=== PATIENT | male | born 1940 | race African-American/Black ===

== ENCOUNTER 2016-12-11 20:16 | Emergency (ER) | payer MEDICARE, OTHER ==
[~2016-12-11] VITALS: Ht 185.4 cm; Wt 79.4 kg
[~2016-12-11 20:16] MED LIST: ATOR10TA84 PO; FINA1 PO; GABA-529 PO; GLIP5 PO; LABE200T PO; LISI-660 PO; METF500T4 PO; OMEP20 PO; TRAM50TA4 PO
[2016-12-11 20:39] LABS: BASOPHILS # (AUTO) 0.05 K/uL (0.00-0.20); BASOPHILS % (AUTO) 0.4 % (0.0-2.0); EOSINOPHILS # (AUTO) 0.41 K/uL (0.00-0.70); EOSINOPHILS % (AUTO) 2.82 % (1.0-6.0); HEMATOCRIT 36.3 % (41-53); HEMOGLOBIN 11.9 g/dL (13.5-17.5); LYMPHOCYTES # (AUTO) 8.7 K/uL (1.0-4.8); MEAN CORPUSCULAR HEMOGLOBIN 29.3 pg (26.0-34.0); MEAN CORPUSCULAR HGB CONC 32.7 G/dL (31.0-37.0); MEAN CORPUSCULAR VOLUME 90 fL (80-100); MONOCYTES # (AUTO) 0.5 K/uL (0.1-1.0); MONOCYTES % (AUTO) 3.4 % (2.0-9.0); NEUTROPHILS # (AUTO) 4.8 K/uL (1.8-7.7); NEUTROPHILS % (AUTO) 33.5 % (40.0-70.0); PLATELET COUNT (AUTO) 176 K/uL (150-450); RED BLOOD CELL COUNT(AUTO) 4.05 MIL/uL (4.50-5.90); RED CELL DISTRIBUTION WIDTH 15.2 % (11.5-14.5); WHITE BLOOD COUNT (AUTO) 14.4 K/uL (4.5-11.0)
[2016-12-11 20:51] LABS: ANION GAP 9 mmol/L (8-16); CALCIUM, TOTAL 8.8 mg/dL (8.8-10.5); CARBON DIOXIDE 28 mmol/L (22-29); CHLORIDE 107 mmol/L (98-107); CREATININE 1.06 mg/dL (0.60-1.30); GLOMERULAR FILTR. RATE CALC > 60 mL/min (>60); INR 1.1 (0.9-1.1); POTASSIUM 3.8 mmol/L (3.5-5.1); PROTHROMBIN TIME 11.7 SEC (9.4-11.6); SODIUM SERUM 144 mmol/L (136-145); UREA NITROGEN, BLOOD 15 mg/dL (7-18)
[2016-12-11 21:00] LABS: AMMONIA 24 umol/L (11-32)
[2016-12-11] MEDS ORDERED: SODIUM CHLORIDE 0.9% 1,000 ML IV ONE (21:00)
[2016-12-11 21:01] LABS: TROPONIN I < 0.02 ng/mL (0.00-0.05)
[2016-12-11 21:06] LABS: ALANINE AMINOTRANSFERASE 21 U/L (12-78); ALBUMIN 3.4 g/dL (3.4-5.0); ASPARTATE AMINOTRANSFERASE 12 U/L (15-37); BILIRUBIN,TOTAL 0.3 mg/dL (0.1-1.0); TOTAL PROTEIN, SERUM 6.5 g/dL (6.4-8.2)
[2016-12-11 21:09] LABS: B-TYPE NATRIURETIC PEPTIDE 26 pg/mL (0-100)
[2016-12-11 21:56] LABS: APPEARANCE,URINE CLEAR (CLEAR); GLUCOSE, URINE (UA) NEGATIVE (NEGATIVE); KETONES,URINE NEGATIVE (NEGATIVE); LEUKOCYTE ESTERASE ,URINE NEGATIVE (NEGATIVE); OCCULT BLOOD,URINE NEGATIVE (NEGATIVE); PH,URINE 5.5 (5.0-8.0); PROTEIN,URINE NEGATIVE (NEGATIVE)
[2016-12-11 22:08] LABS: RBC,URINE 0-2 /HPF (0-2); SQUAMOUS EPITHELIAL CELL,UR Rare /LPF (None Seen); WBC,URINE 0-2 /HPF (0-5)
[2016-12-11] MEDS ORDERED: PIPERACILLIN/TAZO 3.375 GM/D5W 50 ML IV ONE (22:30)
[2016-12-11 23:52] VITALS: BP 104/63
== END 2016-12-12 00:53 | disposition home or self-care (01) ==
LOC: EMS 20:18
DX: R53.1 Weakness (principal); L03.032 Cellulitis of left toe; R41.82 Altered mental status, unspecified; E11.9 Type 2 diabetes mellitus without complications; F03.90 Unspecified dementia, unspecified severity, without behavioral disturbance, psychotic disturbance, mood disturbance, and anxiety; E78.00 Pure hypercholesterolemia, unspecified; I10 Essential (primary) hypertension
CPT/HCPCS: 36415; 51702; 70450; 71010; 72125; 80053; 80307; 81001; 82140; 82948; 83690; 83880; 84484; 85025; 85610; 87040; 93005; 96361; 96365; 96366; 99285; J2543; J7030

== ENCOUNTER 2017-01-05 12:50 | Emergency (ER) | payer MEDICARE, OTHER ==
[~2017-01-05] VITALS: Ht 177.8 cm; Wt 95.5 kg
[2017-01-05 13:07] LABS: GLUCOSE,POINT OF CARE 121 MG/DL (70-110)
[2017-01-05] MEDS ORDERED: FINA5TAB41 PO (14:09)
[2017-01-05] MEDS ORDERED: GABA-531 PO (14:09)
[2017-01-05] MEDS ORDERED: ATOR20TA86 PO (14:09)
[2017-01-05] MEDS ORDERED: BACITRACIN 0.9 GM PACKET OINTMENT TP ONE (14:15)
[2017-01-05 15:05] VITALS: BP 134/69
== END 2017-01-05 15:18 | disposition home or self-care (01) ==
LOC: EMS 12:52
DX: Z48.00 Encounter for change or removal of nonsurgical wound dressing (principal); E11.9 Type 2 diabetes mellitus without complications; E78.00 Pure hypercholesterolemia, unspecified; I10 Essential (primary) hypertension
CPT/HCPCS: 82962; 99283